=== PATIENT | male | born 1995 | race Caucasian/White ===

== ENCOUNTER 2022-03-21 22:58 | Emergency (ER) | payer SELFPAY ==
[~2022-03-21] VITALS: Ht 185.4 cm; Wt 77.1 kg
--- NOTE | 2022-03-21 23:00 | NUR ---
1) IV fluids 0.9% administered as a bolus - iv access saline locked.
[2022-03-21] MEDS ORDERED: ASPIRIN 81 MG TAB.CHEW PO ONE (23:15)
[2022-03-21] MEDS ORDERED: LORAZEPAM 2 MG/1 ML VIAL IV ONE (23:15)
[2022-03-21] MEDS ORDERED: LORAZEPAM 2 MG/1 ML VIAL ONE (23:37)
[2022-03-21 23:38] LABS: HEMATOCRIT 45.1 % (36.7-47.1); MEAN CORPUSCULAR HEMOGLOBIN 27.7 uug (23.8-33.4); MEAN CORPUSCULAR VOLUME 84.4 fL (73.0-96.2); PLATELET COUNT (AUTO) 233 K/uL (152-348)
[2022-03-21] MEDS ORDERED: ASPIRIN 81 MG TAB.CHEW ONE (23:38)
[2022-03-21 23:41] LABS: CARBON DIOXIDE 25 mmol/L (21-32); CHLORIDE 105 mmol/L (98-107); GLUCOSE 92 mg/dL (74-106); UREA NITROGEN, BLOOD 10 mg/dL (7-18)
[2022-03-21] MEDS ORDERED: IV NORMAL SALINE 1000 ML BAG IV ONE (23:45)
[2022-03-21 23:54] LABS: ALANINE AMINOTRANSFERASE 32 U/L (16-63); ALKALINE PHOSPHATASE 85 U/L (50-136); ASPARTATE AMINOTRANSFERASE 14 U/L (15-37); BILIRUBIN,DIRECT 0.3 mg/dL (0.0-0.2); BILIRUBIN,TOTAL 0.8 mg/dL (0.2-1.0); TOTAL PROTEIN, SERUM 6.8 g/dL (6.4-8.2)
--- NOTE | 2022-03-22 00:02 | NUR ---
Pottasium replacement - 40 mEq administer - lab results 3.0L
[2022-03-22] MEDS ORDERED: POTASSIUM CHLORIDE 20 MEQ TAB.PRT.SR ONE (00:06)
[2022-03-22] MEDS ORDERED: POTASSIUM CHLORIDE 20 MEQ TAB.PRT.SR PO ONE (00:15)
--- NOTE | 2022-03-22 00:56 | NUR ---
Asprin x2 administered as prescribed, patient complaining of feeling thirsty - drinkin alot of water, and passing clear urine.
--- NOTE | 2022-03-22 07:07 | NUR ---
1) Patient remain asleep at the time of this report - day staff will assess and discharge home accordingly. 2) Patient remians clinically stable - and will endorse care accordingly.
--- NOTE | 2022-03-22 07:44 | NUR ---
Received endorsement from Staci SALGADO
--- NOTE | 2022-03-22 11:42 | NUR ---
Pt woke up and was ready to go. Pt stated he feels better. Called someone to pick him up. V/S are WNL, GCS = 15, AOx3.
[2022-03-22 11:49] VITALS: BP 101/89
== END 2022-03-22 11:35 | disposition home or self-care (01) ==
LOC: ER 22:58
DX: R06.00 Dyspnea, unspecified (principal); Z20.822 Contact with and (suspected) exposure to COVID-19; F41.9 Anxiety disorder, unspecified; F14.10 Cocaine abuse, uncomplicated; F15.10 Other stimulant abuse, uncomplicated; Z88.0 Allergy status to penicillin; F17.210 Nicotine dependence, cigarettes, uncomplicated
CPT/HCPCS: 99285; 96374; 71045; 87426; 99406; 80076; 80048; 83880; 83735; 85025; 85379; 84484 ×2; 36415 ×2; 93005; J2060; J7040